=== PATIENT | male | born 1945 | race Caucasian/White ===

== ENCOUNTER → 2016-02-12 | Outpatient (CLI) | payer OTHER ==
--- NOTE | 2016-02-12 18:12 | US ---
Venous Doppler Sonography of Right Leg History: Superficial venous reflux disease, with discomfort in right leg following endovenous laser a blation of great saphenous vein and short saphenous vein of right leg. Ablation was performed on Dece [id number]. The patient also complains of partial numbness of the medial right ankle. Technique: Color Doppler and pulse Doppler sonography of right leg were performed with the patient re cumbent and standing, using calf compressions and weight-shifting maneuvers to augment flow. Findings: Right common femoral vein, right femoral vein, right popliteal vein, and deep veins of uppe r right calf are patent, with no thrombus. No evidence of deep vein thrombosis. The treated right great saphenous vein and right short saphenous vein are occluded, with no clot exte nding into deep veins. No fluid collections are identified. Comment: Limited sonography of left leg shows occlusion of the targeted refluxing defense analyst vein of the distal left calf and nearby superficial venous tributaries. Impression: Technically successful ultrasound-guided endovenous laser ablation of right great sapheno us vein and right short saphenous vein. Plan: Clinical follow up with me in two months. 30 minutes consultation, 25 minutes nshs-hj-peet time. - - - - - - - - - - - - - - - - - - - - - - - - - - - - - - - - - - - - - - - - - - - - (PQRS Measures: Current medications were listed in the medical record, including all known prescript ions, [id number] medications, herbal medications, and nutritional supplements. Tobacco Use: Non e. Prophylactic Antibiotic: Unnecessary. VTE prophylaxis: Unnecessary.)
== END ==
LOC: FIMAGING 07:28
PROVIDERS: ATTEND Radiology Diagnostic Radiology
DX: Z09 Encounter for follow-up examination after completed treatment for conditions other than malignant neoplasm (principal)